=== PATIENT | male | born 2000 | race Caucasian/White ===

== ENCOUNTER 2019-07-31 12:18 | Emergency (ER) | payer MEDICAID ==
[~2019-07-31] VITALS: Ht 185.4 cm; Wt 81.5 kg
[2019-07-31 13:12] LABS: BASOPHILS # (AUTO) 0.1 X10'3 (0-0.2); EOSINOPHILS # (AUTO) 0.5 X10'3 (0-0.9); LYMPHOCYTES # (AUTO) 2.3 X10'3 (1.1-4.8); MONOCYTES # (AUTO) 0.9 X10'3 (0-0.9); NEUTROPHILS # (AUTO) 8.5 X10'3 (1.8-7.7); WHITE BLOOD COUNT 12.3 X10'3 (4.5-11.0)
[2019-07-31 13:13] LABS: BASOPHILS % (AUTO) 0.8 % (0-1); EOSINOPHILS % (AUTO) 4.1 % (0-6); HEMATOCRIT 48.1 % (42.0-52.0); HEMOGLOBIN 16.3 g/dl (14.0-17.9); LYMPHOCYTES % (AUTO) 18.7 % (21-51); MEAN CORPUSCULAR HGB CONC 33.9 g/dL (33.0-36.5); MEAN CORPUSCULAR VOLUME 91.3 FL (78-98); MEAN PLATELET VOLUME 8.2 FL (7.4-10.4); MONOCYTES % (AUTO) 7.5 % (2-12); NEUTROPHILS % (AUTO) 68.9 % (42-75); PLATELET COUNT 258 X10'3 (140-440); RED BLOOD COUNT 5.27 X10'6 (4.70-6.10); RED CELL DISTRIBUTION WIDTH 13.9 % (11.5-14.5)
[2019-07-31 13:28] LABS: ALANINE AMINOTRANSFERASE 179 U/L (12-78); ALBUMIN 4.2 G/DL (3.4-5.0); ALKALINE PHOSPHATASE 109 IU/L (20-180); ANION GAP 8 (8-16); ASPARTATE AMINO TRANSFERASE 58 U/L (10-37); BILIRUBIN,TOTAL 0.3 MG/DL (0.1-1.0); BLOOD UREA NITROGEN 11 MG/DL (7-18); BUN/CREATININE RATIO 11.6 (5.4-32.0); CALCIUM 8.9 MG/DL (8.5-10.1); CHLORIDE 105 MMOL/L (99-107); CREATININE 0.95 MG/DL (0.60-1.10); GLUCOSE 84 MG/DL (70-104); POTASSIUM 3.8 MMOL/L (3.5-5.1); SODIUM 141 MMOL/L (135-145); TOTAL CARBON DIOXIDE 28.1 MMOL/L (24-32); TOTAL PROTEIN 8.3 G/DL (6.4-8.2); eGFR > 90 ML/MIN
[2019-07-31 15:13] LABS: CLARITY,URINE SLIGHTLY CLOUDY (Clear); COLOR,URINE YELLOW (Yellow); GLUCOSE, URINE NEGATIVE (Neg); KETONES,URINE NEGATIVE (Neg); LEUKOCYTE ESTERASE ,URINE NEGATIVE (Neg); NITRITES, URINE NEGATIVE (Neg); OCCULT BLOOD,URINE NEGATIVE (Neg); PH,URINE 5.5 (4.8-8.0); PROTEIN,URINE TRACE mg/dl (Neg); UROBILINOGEN,URINE 0.2 E.U/dL (0.2-1.0)
[2019-07-31 15:16] LABS: UA COLLECTION TYPE CLN CATCH MIDSTREAM
[2019-07-31 15:22] LABS: MUCUS STRANDS MODERATE /LPF (Neg)
[2019-07-31 15:25] LABS: BACTERIA,URINE 1+ /HPF (Neg); RBC,URINE 0-2 /HPF (0-2); SQUAMOUS EPITHELIAL CELL,UR MODERATE /LPF (FEW); WBC,URINE 0-4 /HPF (0-4)
[2019-07-31] MEDS ORDERED: LOPE2TAB25 PO (15:33)
[2019-07-31] MEDS ORDERED: FAMO-128 PO (15:33)
[2019-07-31 15:46] VITALS: BP 118/68
== END 2019-07-31 15:49 | disposition home or self-care (01) ==
LOC: ER 12:19
DX: R14.0 Abdominal distension (gaseous) (principal); R19.7 Diarrhea, unspecified; R42 Dizziness and giddiness; Z79.899 Other long term (current) drug therapy
CPT/HCPCS: 36415; 80053; 81001; 85025; 85610; 99283

== ENCOUNTER 2019-10-18 09:01 | Emergency (ER) | payer MEDICAID ==
[~2019-10-18] VITALS: Ht 188 cm; Wt 80.0 kg
[~2019-10-18 09:01] MED LIST: FAMO-128 PO; LOPE2TAB25 PO
--- NOTE | 2019-10-18 09:22 | NUR ---
PT HAVING LOWER BACK PAIN. DENIES TINGLING OR NUMBNESS. URINATION AND BM ARE PAIN FREE.
[2019-10-18] MEDS ORDERED: ketorolac tromethamine 15mg/ml inj. IM ONE (09:50)
[2019-10-18 10:18] LABS: CLARITY,URINE CLEAR (Clear); COLOR,URINE YELLOW (Yellow); GLUCOSE, URINE NEGATIVE (Neg); KETONES,URINE NEGATIVE (Neg); LEUKOCYTE ESTERASE ,URINE NEGATIVE (Neg); NITRITES, URINE NEGATIVE (Neg); OCCULT BLOOD,URINE NEGATIVE (Neg); PROTEIN,URINE NEGATIVE (Neg); UROBILINOGEN,URINE 0.2 E.U/dL (0.2-1.0)
[2019-10-18 10:20] LABS: UA COLLECTION TYPE CLN CATCH MIDSTREAM
[2019-10-18 10:49] VITALS: BP 124/62
== END 2019-10-18 10:50 | disposition home or self-care (01) ==
LOC: ER 09:02
DX: S39.012A Strain of muscle, fascia and tendon of lower back, initial encounter (principal); Z79.899 Other long term (current) drug therapy; V89.2XXA Person injured in unspecified motor-vehicle accident, traffic, initial encounter; Y93.89 Activity, other specified; Y92.488 Other paved roadways as the place of occurrence of the external cause; Y99.8 Other external cause status
CPT/HCPCS: 72080; 81003; 96372; 99284; J1885

== ENCOUNTER 2021-05-08 03:06 | Emergency (ER) | payer MEDICAID ==
[~2021-05-08] VITALS: Ht 188 cm; Wt 80.0 kg
[2021-05-08 03:11] VITALS: BP 131/77
== END 2021-05-08 04:21 ==
LOC: ER 03:07
DX: S70.01XA Contusion of right hip, initial encounter (principal); F10.129 Alcohol abuse with intoxication, unspecified; Z79.899 Other long term (current) drug therapy; Y90.9 Presence of alcohol in blood, level not specified; V87.7XXA Person injured in collision between other specified motor vehicles (traffic), initial encounter; Y93.89 Activity, other specified; Y92.89 Other specified places as the place of occurrence of the external cause; Y99.8 Other external cause status
CPT/HCPCS: 73522; 99283